=== PATIENT | female | born 1940 | race Caucasian/White ===

== ENCOUNTER 2022-03-15 17:56 | Emergency (ER) | payer MEDICARE, OTHER, SELFPAY ==
--- NOTE | ~2022-03-15 | XR_ITS ---
EXAMINATION: XR ankle RT min 3V DATE: 03/15/2022 18:30 INDICATION: Right ankle pain at the lateral malleolus. TECHNIQUE: Anteroposterior, oblique, mortise, and lateral views of the right ankle were obtained. COMPARISON: None. FINDINGS: Bone alignment is normal. There is soft tissue swelling of the dorsum of the hindfoot overlying small nondisplaced flake-like avulsion fractures at the dorsal neck of the talus and dorsal margin of the navicula. No other fractures identified. Joint spaces are normal including a congruent ankle mortise. Small plantar calcaneal spur. IMPRESSION: 1. Small nondisplaced flake-like avulsion fractures at the dorsal neck of the talus and dorsal margin of the navicula. Reviewed, dictated and finalized at location A. IMPRESSION: 1. Small nondisplaced flake-like avulsion fractures at the dorsal neck of the t alus and dorsal margin of the navicula.
[2022-03-15 18:24] VITALS: BP 144/82; PULSE 74; RESP 20; TEMP 36.6; O2SAT 96
--- NOTE | 2022-03-15 18:44 | ED.LOWEXIN ---
HPI - Extremity Injury (Lower) General Chief Complaint: Extremity Injury, Lower Stated Complaint: Fall Injury/ Right Foot Injury Time Seen by Provider: 03/15/22 18:44 Source: patient and RN notes reviewed Mode of arrival: ambulatory Limitations: no limitations History of Present Illness HPI Narrative: 81-year-old female presents to the [facility] with complaints of foot pain after walking down a hill and stepping in a hole. Swelling noted to the lateral aspect of the foot. Related Data Home Medications Medication Instructions Recorded Confirmed amlodipine 10 mg tablet mg 03/15/22 aspirin 81 mg chewable tablet 03/15/22 cholecalciferol (vitamin D3) 50 03/15/22 mcg (2,000 unit) capsule hydrochlorothiazide 25 mg tablet mg 03/15/22 lisinopril 40 mg tablet mg 03/15/22 simvastatin 20 mg tablet mg 03/15/22 Allergies Allergy/AdvReac Type Severity Reaction Status Date / Time No Known Allergies Allergy Verified 03/15/22 18:19 Review of Systems Review of Systems: All systems reviewed & are unremarkable except as noted in HPI and below Constitutional: Constitutional: Reports no additional constitutional complaints, Denies chills and Denies fever(s) Eyes: Eyes: Reports no additional eye complaints ENT: Reports system reviewed and no additional complaints, except as documented Cardiovascular: Cardiovascular: Reports no additional cardiovascular complaints Respiratory: Respiratory: Reports no additional respiratory complaints Gastrointestinal: Gastrointestinal: Reports no additional gastrointestinal complaints Musculoskeletal: Musculoskeletal: Reports as per HPI and Reports joint swelling (Right lateral ankle) Integumentary/Breasts: Skin/Breast: Reports system reviewed and no additional complaints, except as docu Neurologic: Reports system reviewed and no additional complaints, except as documented Psychiatric: Psychiatric: Reports no additional psychiatric complaints Allergic/Immunologic: Allergic/Immunologic: Reports no additional allergic/immunologic complaints PMFSH Comments At the time of my signature, I reviewed and agree with the nursing past medical, surgical, social, and family history. There is no relevant family history pertinent to the patient complaint. Exam Const: General: no acute distress, alert and ill appearing chronically; not acutely Nutritional Appearance: well nourished Orientation/consciousness: patient oriented x3 Limitations: no limitations HENMT: Head: normal to inspection Ears: external ears normal Eyes: General: appearance normal, both eyes and all related structures Pupils: Equal, round and reactive pupils present Neck: Neck: normal visual inspection, no lymphadenopathy and no meningeal signs Chest: Chest palpation & inspection: normal inspection of the chest Resp: Effort & Inspection: normal respiratory effort and no use of accessory muscles Auscultation: clear to auscultation bilaterally, no crackles, no rales, no rhonchi and no wheezes Cardio: Rate: regular rate Rhythm: regular rhythm Back/Spine/Pelvis: Cervical Spine: normal cervical lordosis Thoracic/Lumbar Spine: thoracic and lumbar spine normal to inspection Skin: General skin exam: normal color Rashes: no rashes Wounds: no wounds Neuro: General: patient oriented x3, moves all extremities, no meningeal signs and no focal motor deficits Cranial nerves: Yes Equal, round and reactive pupils present Speech: normal speech Gait exam (Neuro): Normal gait present Extrem: General: normal to inspection, full ROM and capillary refill normal Right lower extremity: full ROM and foot Details: normal capillary refill, tenderness (Lateral proximal foot), toes with normal ROM, ecchymosis (Lateral proximal foot), vascular exam Details: dorsalis pedis pulse present and other (Minor swelling noted lateral proximal foot); no laceration Psych: Appearance: grossly normal and well kempt Mental Status: mental status grossly nor
--- NOTE | 2022-03-15 18:49 | PC.NURSE ---
PT DECLINED WHEELCHAIR TO RADIOLOGY
== END 2022-03-15 19:31 | disposition home or self-care (01) ==
PROVIDERS: Emergency Provider Nurse Practitioner; PCP Family Medicine
DX: S92.154A Nondisplaced avulsion fracture (chip fracture) of right talus, initial encounter for closed fracture (principal); S92.254A Nondisplaced fracture of navicular [scaphoid] of right foot, initial encounter for closed fracture; W17.2XXA Fall into hole, initial encounter; Z79.82 Long term (current) use of aspirin; E78.00 Pure hypercholesterolemia, unspecified; I10 Essential (primary) hypertension
CPT/HCPCS: 29515; 73610; 99214; G0463